=== PATIENT | female | born 2000 | race Caucasian/White ===

== ENCOUNTER → 2019-12-23 | Outpatient (CLI) | payer BC | LOC: HYPER 09:09 | DX: T81.31XA Disruption of external operation (surgical) wound, not elsewhere classified, initial encounter (principal); S91.002A Unspecified open wound, left ankle, initial encounter; L02.611 Cutaneous abscess of right foot; M86.9 Osteomyelitis, unspecified; B95.1 Streptococcus, group B, as the cause of diseases classified elsewhere; M79.661 Pain in right lower leg; X58.XXXA Exposure to other specified factors, initial encounter; Y93.89 Activity, other specified; Y92.89 Other specified places as the place of occurrence of the external cause; Y99.8 Other external cause status ==

== ENCOUNTER → 2019-12-30 | Outpatient (CLI) | payer BC | LOC: HYPER 09:36 | DX: T81.31XD Disruption of external operation (surgical) wound, not elsewhere classified, subsequent encounter (principal); S91.002D Unspecified open wound, left ankle, subsequent encounter; L02.611 Cutaneous abscess of right foot; B95.4 Other streptococcus as the cause of diseases classified elsewhere; M86.9 Osteomyelitis, unspecified; X58.XXXD Exposure to other specified factors, subsequent encounter; Y83.8 Other surgical procedures as the cause of abnormal reaction of the patient, or of later complication, without mention of misadventure at the time of the procedure ==

== ENCOUNTER → 2020-01-07 | Outpatient (CLI) | payer BC | LOC: HYPER 09:27 | DX: T81.49XD Infection following a procedure, other surgical site, subsequent encounter (principal); L02.611 Cutaneous abscess of right foot; L84 Corns and callosities; A49.1 Streptococcal infection, unspecified site; M86.9 Osteomyelitis, unspecified; Y83.8 Other surgical procedures as the cause of abnormal reaction of the patient, or of later complication, without mention of misadventure at the time of the procedure ==

== ENCOUNTER → 2020-01-20 | Outpatient (CLI) | payer BC | LOC: HYPER 09:40 | DX: T81.49XD Infection following a procedure, other surgical site, subsequent encounter (principal); A49.1 Streptococcal infection, unspecified site; M86.8X8 Other osteomyelitis, other site; L02.611 Cutaneous abscess of right foot; L84 Corns and callosities; Y83.8 Other surgical procedures as the cause of abnormal reaction of the patient, or of later complication, without mention of misadventure at the time of the procedure ==

== ENCOUNTER → 2020-02-03 | Outpatient (CLI) | payer BC | LOC: HYPER 09:39 | DX: T81.31XD Disruption of external operation (surgical) wound, not elsewhere classified, subsequent encounter (principal); L02.611 Cutaneous abscess of right foot; L84 Corns and callosities; A49.1 Streptococcal infection, unspecified site; M86.9 Osteomyelitis, unspecified; Y83.8 Other surgical procedures as the cause of abnormal reaction of the patient, or of later complication, without mention of misadventure at the time of the procedure ==